=== PATIENT | female | born 1950 | race Caucasian/White ===

== ENCOUNTER 2020-03-26 07:22 | Outpatient (CLI) | payer MEDICARE, SELFPAY ==
--- NOTE | ~2020-03-26 | XR_ITS ---
XR foot LT 2V DATE: 03/26/2020 07:48 INDICATION: Left foot injury, pain TECHNIQUE: AP and lateral views COMPARISON: None FINDINGS: There are 3 screws of the shaft of the first metatarsal bone. There is wire suture of the p roximal phalanx of the first digit. 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 Osteopenia. No fracture, dislocation, periosteal reaction or bone destruction is detected. IMPRESSION: Postoperative changes of the first metatarsal and proximal phalanx of first digit Osteoarthritis at first metatarsophalangeal joint Reviewed, dictated and finalized at location A.
--- NOTE | ~2020-03-26 | XR_ITS ---
XR ankle LT 2V DATE: 03/26/2020 07:48 INDICATION: Left ankle injury, pain TECHNIQUE: AP and lateral views COMPARISON: 03/25/2020 left foot FINDINGS: Screws are noted in the first metatarsal shaft. Wire suture is noted at the proximal phalan x of first digit. Moderate osteopenia. No fracture or dislocation of the ankle or disruption of the ankle mortise is detected. No periosteal reaction or bone destruction. IMPRESSION: Moderate osteopenia Postoperative change of the first metatarsal and proximal phalanx of the first digit Reviewed, dictated and finalized at location A.
== END 2020-03-26 07:23 | disposition home or self-care (01) ==
LOC: ANHIMG 07:29
PROVIDERS: PCP Family Medicine; Visit Provider Physician Assistant Medical
DX: S99.922A Unspecified injury of left foot, initial encounter (principal); S99.912A Unspecified injury of left ankle, initial encounter; M19.072 Primary osteoarthritis, left ankle and foot; M85.872 Other specified disorders of bone density and structure, left ankle and foot
CPT/HCPCS: 73600; 73620

== ENCOUNTER → 2023-01-28 10:39 | Outpatient (CLI) | payer MEDICARE, SELFPAY ==
--- NOTE | ~2023-01-28 | XR_ITS ---
Right foot Technique: AP and lateral views were obtained. Clinical History: Pain COMPARISON: 04/10/2015 Findings: No acute fracture or dislocation is seen. Osseous alignment is unchanged. There is stable e xtensive orthopedic fixation hardware involving the midfoot and hindfoot articulations, including the subtalar joint, talonavicular, naviculocuneiform, and calcaneocuboid articulations. Tarsometatarsal and interphalangeal joint spaces are relatively well-preserved. Soft tissues are unremarkable. Impression: No acute abnormality. Stable extensive orthopedic fixation of the hindfoot and midfoot articulations, as noted above. Reviewed, dictated and finalized at location M. Impression: No acute abnormality. Stable extensive orthopedic fixation of the hindfoot and midfoot articulations, as noted above.
== END ==
PROVIDERS: PCP Physician Assistant Medical; Visit Provider Physician Assistant Medical
DX: M79.671 Pain in right foot (principal)
CPT/HCPCS: 73620

== ENCOUNTER 2023-04-27 08:11 | Day surgery (SDC) | payer MEDICARE, SELFPAY ==
[2023-04-26 09:56] VITALS: BMI 22.6
--- NOTE | ~2023-04-27 | XR_ITS ---
XR fluoroscopy no charge Procedure: Right L2 sympathetic plexus nerve block TECHNIQUE: Fluoroscopy used during Right L2 sympathetic plexus nerve block performed by [Dragan Almonte MD] on 04/27/2023. 24 seconds of fluoroscopy time with 5 images captured. FINDINGS: Correlate with procedure note. IMPRESSION: Fluoroscopy used during Right L2 sympathetic plexus nerve block. Reviewed, dictated and finalized at location A.
--- NOTE | 2023-04-27 07:24 | WPDHPUPDATE1 ---
History and Physical Update Update Date/Time: 04/27/23 07:24 History and Physical has been reviewed, including an updated exam of the patient. There are NO changes in the patient's condition. Risks, benefits, and alternatives have been discussed and questions answered. Patient agrees to proceed with procedure.
[2023-04-27 09:32] VITALS: BP 123/78; PULSE 69; RESP 14; TEMP 36.6; O2SAT 100
--- NOTE | 2023-04-27 09:38 | W.PM.PROC2 ---
Procedure Note - Detailed Date of Procedure 04/27/23 Pre-op Diagnosis CRPS I Right Lower Extremity, Chronic Pain Post-op Diagnosis Same Procedure Performed Right Lumbar Sympathetic Plexus Block at L2 Under Fluoroscopic Guidance. Surgeon Dragan Almonte MD Anesthesia Local Description of Procedure INFORMED CONSENT: Risks, benefits and alternatives to the procedure were discussed in detail with the patient who expressed explicit understanding and consent to proceed. Patient was informed verbally and in written form regarding the risks associated with the procedure including the low risk of serious infection, bleeding/bruising, hypotension/cardiovascular collapse, allergic reaction, nerve or organ injury, paralysis, procedural site pain or discomfort, worsening pain and/or mobility, failure to treat and/or disfigurement. The patient expressed explicit understanding and consent to proceed. All materials required for the procedure were available prior to procedure start. Site and side were marked prior to procedure and confirmed in the presence of the patient. PROCEDURE IN DETAIL: The patient was brought to the procedural suite and placed in the prone position. Patient was made comfortable with use of pillows under the head/chest, hips and ankles. Skin overlying the injection site was prepared broadly with ChloraPrep applicator and draped in a sterile manner. Aseptic technique was employed throughout. The endplates of the L2 vertebral body at the site of interest were aligned in the AP view. Local anesthesia was established by infiltration with approximately 5 mL of 0.5% lidocaine via a 1-1/2 inch 27-gauge needle. An additional 5 ml of 0.5% PF lidocaine was delivered via a 22-gauge, 3.5 inch Quincke spinal needle to anesthetize the deeper tissues down to the lateral vertebral body, injecting only after negative aspiration. A 22-gauge 5-inch Quincke spinal needle was advanced medially and anteriorly until the needle tip contacted periosteum on the ipsilateral L2 vertebral body. Needle was repositioned by walking-off anteromedially and advancing until the needle tip was positioned 2-3 millimeters ventral to the anterior border of the respective vertebral body in the lateral view. In the lateral view, 3 mL of Omnipaque 300 contrast medium was injected after negative aspiration for CSF, blood or other bodily fluid, showing appropriate linear spread in the ventrolateral prevertebral space without evidence of intravascular, intrathecal, epidural or foraminal spread of contrast. Appropriate amorphous spread of contrast was confirmed in the AP view. Digital subtraction imaging was used to confirm lack of intravascular spread in the AP view with an additional 3 ml of IV contrast. A 10mL solution containing 10 mg of dexamethasone in 0.5% PF Bupivacaine was injected in 1 ml aliquots following negative intermittent aspiration to effectively block the right lumbar sympathetic plexus. Appropriate spread of the injectate was confirmed with washout of previously injected contrast. No parasthesias were elicited. Needle was removed completely intact without difficulty. Images were saved and documented in the patient chart. Patient's skin was cleansed and sterile bandage applied. The patient tolerated the procedure well. The patient was transported to the recovery area in stable condition where they were observed for an appropriate amount of time prior to discharge, without evidence of complication. The patient was instructed to avoid excessive activity for the next 48 hours, including climbing and frequent use of stairs. Showers only for 48 hours. They were instructed not to drive or operate heavy machinery for 24 hours. They are to monitor for severe headaches, fevers, chills, night sweats, erythema/swelling at the site or any other signs of infection, bleeding/bruising, bowel or bladder changes as well as new pain, weakness or numbness in the upper or lower extremity. Should they notice t
[2023-04-27 09:50] VITALS: PULSE 72; RESP 16; O2SAT 100
[2023-04-27] MEDS: LIDOCAINE HCL 1% PF INJ 5 ML VIAL AFFCTD EYE (09:55)
[2023-04-27] MEDS: BUPivacaine HCL 0.5% 10 ML AMP INFILTRATE (09:58)
[2023-04-27 10:00] VITALS: PULSE 67; RESP 17; O2SAT 100
[2023-04-27 10:10] VITALS: BP 137/87; PULSE 67; RESP 18; O2SAT 100
== END 2023-04-27 10:25 | disposition home or self-care (01) ==
LOC: ASC 08:33
PROVIDERS: PCP Family Medicine; Visit Provider Anesthesiology Pain Medicine
PROC: (CPT 64520; principal; 2023-04-27 09:30)
DX: G90.521 Complex regional pain syndrome I of right lower limb (principal); G89.4 Chronic pain syndrome
CPT/HCPCS: 64520; 99199